=== PATIENT | male | born 1985 | race Hispanic/Latino ===

== ENCOUNTER 2019-08-09 17:05 | Emergency (ER) | payer SELFPAY | END 2019-08-09 17:49 | disposition home or self-care (01) | LOC: ERS 17:05 | DX: H92.02 Otalgia, left ear (principal); J45.909 Unspecified asthma, uncomplicated; Z87.891 Personal history of nicotine dependence; F41.9 Anxiety disorder, unspecified; F32.9 Major depressive disorder, single episode, unspecified | CPT/HCPCS: 99282 ==

== ENCOUNTER 2021-02-23 10:40 | Emergency (ER) | payer SELFPAY | END 2021-02-23 12:37 | disposition home or self-care (01) | LOC: ERS 10:40 | DX: S00.262A Insect bite (nonvenomous) of left eyelid and periocular area, initial encounter (principal); W57.XXXA Bitten or stung by nonvenomous insect and other nonvenomous arthropods, initial encounter | CPT/HCPCS: 99282 ==

== ENCOUNTER 2022-10-30 12:19 | Emergency (ER) | payer BC ==
[2022-10-30] MEDS ORDERED: EPINEPHrine 1 MG/ML VIAL ONE (12:49)
[2022-10-30] MEDS ORDERED: methylPREDNISolone Sod Succ/PF 125 MG/2 ML VIAL ONE (12:53)
[2022-10-30] MEDS ORDERED: diphenhydrAMINE 50 MG/ML VIAL ONE (12:53)
== END 2022-10-30 14:27 | disposition home or self-care (01) ==
LOC: ERS 12:19
DX: T88.6XXA Anaphylactic reaction due to adverse effect of correct drug or medicament properly administered, initial encounter (principal); T50.995A Adverse effect of other drugs, medicaments and biological substances, initial encounter
CPT/HCPCS: 93005; 96372; 96374; 96375; J0171; J1200; J2930

== ENCOUNTER 2025-08-17 21:21 | Emergency (ER) | payer BC ==
[2025-08-17] MEDS ORDERED: HYDROcodone/Acetaminophen 10/325 mg Tablet ONE (22:29)
== END 2025-08-17 22:43 | disposition home or self-care (01) ==
LOC: ERS 21:21
DX: K64.4 Residual hemorrhoidal skin tags (principal); F17.210 Nicotine dependence, cigarettes, uncomplicated
CPT/HCPCS: 99283